=== PATIENT | male | born 1940 | race Caucasian/White ===

== ENCOUNTER 2021-10-13 11:37 | Emergency (ER) | payer MEDICARE, BC ==
[~2021-10-13] VITALS: Ht 177.8 cm; Wt 64.4 kg
--- NOTE | 2021-10-13 12:00 | NUR ---
RECEVED PT 80 YRS MALE FROM HOME PAIN ON RT HIP UNABLE TO WALKING AWAKE AND FALLOW COMMAND respiration spont and easy
--- NOTE | 2021-10-13 13:00 | NUR ---
UA SENT TO LAB
--- NOTE | 2021-10-13 14:00 | NUR ---
X- RAY DONE AT BED SIDE
[2021-10-13 14:31] LABS: BILIRUBIN,URINE NEGATIVE (NEGATIVE); COLOR,URINE YELLOW (YELLOW); LEUKOCYTE ESTERASE ,URINE NEGATIVE (NEGATIVE); NITRITE, URINE NEGATIVE (NEGATIVE); PH,URINE 8.5 (5.0-8.0); PROTEIN,URINE 30 mg/dl (NEGATIVE); UGLUCOSE 100 MG/DL mg/dL (NEGATIVE); UROBILINOGEN,URINE 0.2 EU/dL (0.2)
--- NOTE | 2021-10-13 15:07 | NUR ---
DR. QUEZADA AT BED SIDE SPOOKING WITH ABOUT PLAN OF CARE
--- NOTE | 2021-10-13 15:10 | NUR ---
D/C INSTRACTION GIVEN TO PT FULLY AND VERBLIZED UNDERSTOOD D/C STABLE VS NO PAIN
--- NOTE | 2021-10-13 15:12 | NUR ---
AT BED SIDE CONDITION UP DATE
[2021-10-13 15:18] VITALS: BP 132/64
[2021-10-13 15:28] LABS: BACTERIA,URINE None seen /HPF (None Seen); RBC,URINE 0-2 /HPF (0-2); SQUAMOUS EPITHELIAL CELL,UR 0-2 /HPF (None Seen); WBC,URINE 0-2 /HPF (0-3)
== END 2021-10-13 15:33 | disposition home or self-care (01) ==
LOC: ER 11:39
DX: M25.551 Pain in right hip (principal); G89.29 Other chronic pain; I10 Essential (primary) hypertension; F03.90 Unspecified dementia, unspecified severity, without behavioral disturbance, psychotic disturbance, mood disturbance, and anxiety
CPT/HCPCS: 71045-TC; 72131-TC; 73502; 81001